=== PATIENT | female | born 1985 | race Caucasian/White ===

== ENCOUNTER → 2016-06-12 | Outpatient (CLI) | payer SELFPAY ==
[~2016-06-12] MED LIST: CLARITIN PO; DAYQUIL COLD/FL1 SGL PO; MUCINEX 60600 MG/TA1 PO; NEXIUM 40MG40 MG PO; SYNTHROID0.125 MG PO; TESSALON PERLE200 MG PO; TYLENOL W CODEIN1 ML PO; ZITHROMAX 250M250 MG PO
== END ==
LOC: LAB 08:02
DX: R50.9 Fever, unspecified (principal); H92.03 Otalgia, bilateral; R09.81 Nasal congestion; R05 Cough

== ENCOUNTER → 2017-02-17 | Outpatient (REF) ==
[2013-03-09 19:06] VITALS: BP 132/82
== END ==
LOC: LAB 14:06
DX: E03.9 Hypothyroidism, unspecified (principal)

== ENCOUNTER → 2018-10-06 | Outpatient (CLI) | payer SELFPAY ==
[2013-03-09 19:06] VITALS: BP 132/82
== END ==
LOC: LAB 14:03
DX: E03.9 Hypothyroidism, unspecified (principal)

== ENCOUNTER → 2023-12-15 | Outpatient (CLI) | payer OTHER ==
[2023-12-15 09:46] LABS: BASO # 0.04 K/mm3 (0.02-0.10); EOS # 0.27 K/mm3 (0.04-0.40); EOS % 3.3 % (1.0-5.0); HEMATOCRIT 40.3 % (37.0-47.0); HEMOGLOBIN 13.4 g/dL (12.5-16.0); LYMPH# 1.99 K/mm3 (1.50-4.00); MEAN CELL VOLUME 84 fl (78-100); MEAN CORPUSCULAR HEMOGLOBIN 28 pg (27-31); MEAN CORPUSCULAR HGB CONC 33 g/dL (33-37); MEAN PLATELET VOLUME 8.8 fl (7.4-10.4); MONO # 0.43 K/mm3 (0.20-0.80); NEU # 5.33 K/mm3 (1.40-6.50); PLATELET COUNT 285 K/mm3 (130-400); RED BLOOD COUNT 4.79 M/mm3 (4.10-5.30); RED CELL DISTRIBUTION WIDTH 13.5 % (11.5-14.5); WHITE BLOOD COUNT 8.1 K/mm3 (4.8-10.8)
[2023-12-15 10:05] LABS: ALBUMIN 4.4 g/dL (3.5-5.0); SODIUM 140 mmol/L (136-145)
[2023-12-15 10:06] LABS: CALCIUM 10.4 mg/dL (8.3-10.5)
[2023-12-15 10:08] LABS: GLUCOSE 103 mg/dL (65-105); TOTAL PROTEIN 7.8 g/dL (6.4-8.3)
[2023-12-15 10:09] LABS: CARBON DIOXIDE 21 mmol/L (22-29); TOTAL BILIRUBIN 0.5 mg/dL (0.2-1.2)
[2023-12-15 10:13] LABS: AST-SGOT 15 U/L (5-34)
[2023-12-15 10:16] LABS: ALT/SGPT < 6 U/L (0-55)
== END ==
LOC: LAB 09:32
PROVIDERS: Nurse Practitioner
DX: Z00.00 Encounter for general adult medical examination without abnormal findings (principal); Z13.220 Encounter for screening for lipoid disorders; M25.50 Pain in unspecified joint; E03.9 Hypothyroidism, unspecified